=== PATIENT | male | born 2000 | race Caucasian/White ===

== ENCOUNTER 2019-12-07 06:47 | Emergency (ER) | payer OTHER ==
--- NOTE | 2019-12-07 07:07 | EDM.PDOC ---
"ED HPI GENERAL MEDICAL PROBLEM - General Chief Complaint: Upper Extremity Injury/Pain Stated Complaint: WRIST PAIN Time Seen by Provider: 12/07/19 07:07 Source of Information: Reports: Patient, RN, RN Notes Reviewed History Limitations: Reports: No Limitations - History of Present Illness INITIAL COMMENTS - FREE TEXT/NARRATIVE: Pt presents to ER by POV with reports of onset last evening of severe pain to the B/L distal forearms and wrists. 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 Denies any injury, new or repetitive use of the arms or wrists. He was working out in the sun the last few days with arms and hands directly exposed to the sunlight. Pt's father states that the men on pt's father's side all have protoporphyria with skin problems and pain caused by sun exposure. The pt has never been tested for porphyria. Onset: Gradual Onset Date: 12/06/19 Duration: Constant Location: Reports: Upper Extremity, Left, Upper Extremity, Right Quality: Reports: Ache Severity: Severe Improves with: Reports: None Worsens with: Reports: Movement Associated Symptoms: Reports: No Other Symptoms Bilateral Wrist Pain Score (Numeric/FACES): 8 - Related Data Allergies Allergy/AdvReac Type Severity Reaction Status Date / Time No Known Allergies Allergy Verified 12/07/19 07:00 Home Meds: Home Meds . [No Known Home Meds] 09/26/18 [History] Past Medical History - Past Health History Medical/Surgical History: Denies Medical/Surgical History Gastrointestinal History: Reports: Hemorrhoids Musculoskeletal History: Reports: Other (See Below) Other Musculoskeletal History: Pt states broken bones Social & Family History - Family History Dermatologic: Reports: Other (See Below) (Father, P-grandfather, and several other males on paternal side have Protoporphyria (solar sensitive erythroproetic porphyria)) - Tobacco Use Smoking Status *Q: Current Every Day Smoker Years of Tobacco use: 2 Packs/Tins Daily: 1 - Caffeine Use Caffeine Use: Reports: Energy Drinks, Soda, Tea - Recreational Drug Use Recreational Drug Use: No - Living Situation & Occupation Living situation: Reports: with Family Occupation: Employed Review of Systems - Review of Systems Review Of Systems: Comprehensive ROS is negative, except as noted in HPI. ED EXAM, GENERAL - Physical Exam Exam: See Below Exam Limited By: No Limitations General Appearance: Alert, WD/WN, No Apparent Distress Eye Exam: Bilateral Eye: Normal Inspection Throat/Mouth: Normal Voice, No Airway Compromise Head: Atraumatic, Normocephalic Neck: Normal Inspection Respiratory/Chest: No Respiratory Distress, Lungs Clear, Normal Breath Sounds, No Accessory Muscle Use, Chest Non-Tender Cardiovascular: Normal Peripheral Pulses, Regular Rate, Rhythm GI/Abdominal: Non-Tender, No Organomegaly Back Exam: Normal Inspection, Full Range of Motion Extremities: Normal Capillary Refill, Arm Pain (B/L distal forearm and wrist tenderness with no visible swelling, bruising, discoloration, or deformity.). No: Joint Swelling, Leg Pain, Increased Warmth, Redness Neurological: Alert, Oriented, No Motor/Sensory Deficits Psychiatric: Normal Mood Skin Exam: Warm, Dry, Intact, Normal Color, No Rash. No: Ecchymosis, Erythema, Increased Warmth, Jaundice, Pallor, Petechiae, Wound/Incision Course - Vital Signs Last Recorded V/S: Last Vital Signs Temp 98.6 F 12/07/19 06:57 Pulse 93 12/07/19 06:57 Resp 17 12/07/19 06:57 BP 145/85 H 12/07/19 06:57 Pulse Ox 100 12/07/19 06:57 - Orders/Labs/Meds Labs: Laboratory Tests 12/07/19 12/07/19 12/07/19 Range/Units 07:16 07:16 07:16 WBC 5.4 (5.0-10.0) 10^3/uL RBC 5.28 (4.6-6.2) 10^6/uL Hgb 16.5 (14.0-18.0) g/dL Hct 46.3 (40.0-54.0) % MCV 87.7 (80-100) fL MCH 31.3 (27.0-34.0) pg MCHC 35.6 H (33.0-35.0) g/dL Plt Count 296 (150-450) 10^3/uL Neut % (Auto) 57.0 (42.2-75.2) % Lymph % (Auto) 29.9 (20.5-50.1) % Swain % (Auto) 10.0 H (2-8) % Eos % (Auto) 2.0 (1.0-3.0) % Baso % (Auto) 1.1 H (0.0-1.0) % ESR 2 (0-15) mm/hr Sodium 143 (136-145) mmol/L Potassium 4.5 (3.5-5.1) mmol/L Chloride 106 (98-107) mmol/L Carbon Dioxide 28 (21-32) mmol/L Anion Gap 13.5 H (7-13) mEq/L BUN 17 (7-18) mg/dL Creatinine 1.22 (0.70-1.30) mg/dL Est Cr Clr Drug Dosing 96.58 mL/min Estimated GFR (MDRD) > 60 BUN/Creatinine Ratio 13.9 (No establ ref range) Glucose 101 H (74-99) mg/dL Uric Acid 5.3 (3.5-7.2) mg/dL Calcium 8.6 (8.5-10.1) mg/dL Total Bilirubin 1.2 H (0.2-1.0) mg/dL AST 19 (15-37) U/L ALT 26 (16-63) U/L Alkaline Phosphatase 96 (46-116) U/L C-Reactive Protein 0.2 (0.0-0.9) mg/dL Total Protein 7.4 (6.4-8.2) g/dL Albumin 4.0 (3.4-5.0) g/dL Globulin 3.4 Albumin/Globulin Ratio 1.2 Meds: Medications Discontinued Medications Generic Name Dose Route Start Last Admin Trade Name Freq PRN Reason Stop Dose Admin Hydrocodone Bitart/Acetaminophen 1 tab 12/07/19 07:51 12/07/19 07:57 [place] 325-10 Mg PO 12/07/19 07:52 1 tab ONETIME ONE Administration - Radiology Interpretation Free Text/Narrative:: [facility] Final Radiology Report Call: [phone] assistance Online chat: [email or web address] Name: SONI MICHEL Age: 19Years M Date: 12/07/2019 SSN: -- : [id number] Study: CR WRIST COMP MIN 3V BI Requesting Physician: CORINNA YOUNG Images: 3 Addl Studies: [id number] - XR WRIST COMPLETE MIN OF 3 VIEWS (1) Provided Clinical History: severe wrist pain, no injury Contrast: Contrast Medium: Contrast Amount: Contrast Method: Page 1 of 2 PROCEDURE INFORMATION: Exam: XR Right Wrist Exam date and time: 12/07/2019 7:11 AM Age: 19 years old Clinical indication: Other: Severe wrist pain, no injury. Possible new onset rheumatological condition TECHNIQUE: Imaging protocol: XR Right wrist. Views: 3 or more views. COMPARISON: No relevant prior studies available. FINDINGS: Bones/joints: No erosions. No narrowing of the MCP joints. No periarticular demineralization. Carpal bones are intact. No narrowing of the carpal joint spaces. No ulnar styloid erosion. No subluxation. Soft tissues: No calcification within adjacent soft tissues. IMPRESSION: No acute findings. PROCEDURE INFORMATION: Exam: XR Left Wrist Exam date and time: 12/07/2019 7:11 AM Age: 19 years old Clinical indication: Other: Severe wrist pain, no injury. Possible new onset rheumatological condition SONI MICHEL | Final Radiology Report CONFIDENTIALITY STATEMENT This report is intended only for use by the referring physician, and only in accordance with law. If you received this in error, call [phone]. Page 2 of 2 TECHNIQUE: Imaging protocol: XR Left wrist. Views: 3 or more views. COMPARISON: No relevant prior studies available. FINDINGS: Bones/joints: No erosions. No narrowing of the MCP joints. No periarticular demineralization. Carpal bones are intact. No narrowing of the carpal joint spaces. No ulnar styloid erosion. No subluxation. Soft tissues: No calcification within adjacent soft tissues. IMPRESSION: No acute findings. Thank you for allowing us to participate in the care of your patient. Dictated and Authenticated by: Brayan Landry MD 12/07/2019 7:38 AM Central Time ([place] & [place]) - Re-Assessments/Exams Free Text/Narrative Re-Assessment/Exam: 12/07/19 07:58 Pt advised that he is being treated based on negative exam and negative lab/imaging findings with positive family history of erythropic protoporphyria as the most likely clinical diagnosis. I recommended that he f/u in clinic and have further evaluation. Departure - Departure Time of Disposition: 07:32 Disposition: Home, Self-Care 01 Condition: Good Clinical Impression: Protoporphyria - Discharge Information *PRESCRIPTION DRUG MONITORING PROGRAM REVIEWED*: No *COPY OF PRESCRIPTION DRUG MONITORING REPORT IN PATIENT GLENNY: No Instructions: Porphyria Forms: ED Department Discharge Additional Instructions: Rx: Hydrocodone APAP 5mg/325mg *Do not drive or work while under the influence of this medication. Avoid sun exposure to the arms and hands. Follow up in clinic next week for further evaluation and treatment if not improved. Sepsis Event Note (ED) - Evaluation Sepsis Screening Result: No Definite Risk - Focused Exam Vital Signs: Vital Signs Temp Pulse Resp BP Pulse Ox 12/07/19 06:57 98.6 F 93 17 145/85 H 100"
--- NOTE | 2019-12-07 07:38 | CR ---
PROCEDURE INFORMATION: Exam: XR Right Wrist Exam date and time: 12/07/2019 7:11 AM Age: 19 years old Clinical indication: Other: Severe wrist pain, no injury. Possible new onset rheumatological condition TECHNIQUE: Imaging protocol: XR Right wrist. Views: 3 or more views. COMPARISON: No relevant prior studies available. FINDINGS: Bones/joints: No erosions. No narrowing of the MCP joints. No periarticular demineralization. Carpal bones are intact. No narrowing of the carpal joint spaces. No ulnar styloid erosion. No subluxation. Soft tissues: No calcification within adjacent soft tissues. IMPRESSION: No acute findings. PROCEDURE INFORMATION: Exam: XR Left Wrist Exam date and time: 12/07/2019 7:11 AM Age: 19 years old Clinical indication: Other: Severe wrist pain, no injury. Possible new onset rheumatological condition TECHNIQUE: Imaging protocol: XR Left wrist. Views: 3 or more views. COMPARISON: No relevant prior studies available. FINDINGS: Bones/joints: No erosions. No narrowing of the MCP joints. No periarticular demineralization. Carpal bones are intact. No narrowing of the carpal joint spaces. No ulnar styloid erosion. No subluxation. Soft tissues: No calcification within adjacent soft tissues. IMPRESSION: No acute findings.
[2019-12-07 07:41] LABS: ANION GAP 13.5 mEq/L (7-13); CHLORIDE,CL 106 mmol/L (98-107); SODIUM,NA 143 mmol/L (136-145)
[2019-12-07] MEDS ORDERED: Acetaminophen/HYDROcodone 325-10 MG Tab PO ONE (07:51)
== END 2019-12-07 08:01 | disposition home or self-care (01) ==
LOC: DL.ED 06:47
DX: E80.0 Hereditary erythropoietic porphyria (principal); F17.210 Nicotine dependence, cigarettes, uncomplicated
CPT/HCPCS: 36415; 73110; 80053; 84550; 85025; 85651; 86140; 99283; A9270